=== PATIENT | male | born 1985 | race Caucasian/White ===

== ENCOUNTER 2017-05-04 13:15 | Inpatient (IN) | payer OTHER ==
[~2017-05-04] VITALS: Ht 177.8 cm; Wt 131.5 kg
[2017-05-04 13:24] VITALS: BP_SYST 160
[2017-05-04 14:08] LABS: BASOPHILS # (AUTO) 0.1 K/uL (0.0-0.2); BASOPHILS % (AUTO) 0.3 % (0.0-2.0); HEMATOCRIT 48.6 % (36-54); HEMOGLOBIN 15.9 g/dL (14.0-18.0); LYMPHOCYTES # (AUTO) 0.6 K/uL (1.0-5.5); LYMPHOCYTES % (AUTO) 2.6 % (20.5-51.5); MEAN CORPUSCULAR HEMOGLOBIN 30 pg (27-31); MEAN CORPUSCULAR HGB CONC 33 % (32-36); MEAN CORPUSCULAR VOLUME 91 fL (79.0-98.0); MONOCYTES # (AUTO) 0.6 K/uL (0.0-1.0); MONOCYTES % (AUTO) 2.8 % (1.7-9.3); NEUTROPHILS % (AUTO) 94.3 % (40.0-70.0); PLATELET COUNT (AUTO) 297 K/uL (130-430); RED BLOOD CELL COUNT(AUTO) 5.35 MIL/uL (4.2-6.2); RED CELL DISTRIBUTION WIDTH 12.9 % (9.0-15.0); WHITE BLOOD COUNT (AUTO) 21.3 K/uL (4.8-10.8)
[2017-05-04 14:18] LABS: CALCIUM 9.3 mg/dL (8.4-11.0); CREATININE 1.05 mg/dL (0.55-1.30); POTASSIUM 4.1 mmol/L (3.5-5.1)
[2017-05-04 14:23] LABS: ALBUMIN 3.8 g/dL (3.4-4.8); TOTAL BILIRUBIN 0.6 mg/dL (0.0-1.0); TOTAL PROTEIN, SERUM 8.5 g/dL (6.4-8.3)
--- NOTE | 2017-05-04 15:10 | NUR ---
Ambulatory to bed 6
--- NOTE | 2017-05-04 15:30 | NUR ---
Ahsan Leos DIE MAINTENANCE at bedside for evaluation
--- NOTE | 2017-05-04 15:33 | NUR ---
Pt c/o LLE redness started yesterday, chills and fever last night.
[2017-05-04] MEDS ORDERED: KETOROLAC TROMETHAMINE 30 MG VIAL IVP ONE (15:45)
[2017-05-04] MEDS ORDERED: NACL 0.9% 1,000 ML IV ONE (15:45)
[2017-05-04] MEDS ORDERED: cefTRIAXone 1 GM IVPB PREMIX 50 ML IV ONE (15:45)
[2017-05-04] MEDS ORDERED: VANCOMYCIN HCL 1,000 MG in NS 250 ML IV ONE (15:45)
--- NOTE | 2017-05-04 15:47 | NUR ---
Phleb at bedside to draw cultures and lactic acid
[2017-05-04 15:53] LABS: BILIRUBIN,URINE NEGATIVE (NEGATIVE); BLOOD, URINE NEGATIVE (NEGATIVE); CLARITY/URINE CLEAR (CLEAR); COLOR,URINE YELLOW (YELLOW); GLUCOSE,URINE NEGATIVE (NEGATIVE); KETONES,URINE NEGATIVE (NEGATIVE); LEUKOCYTE ESTERASE ,URINE NEGATIVE (NEGATIVE); NITRITE, URINE NEGATIVE (NEGATIVE); PROTEIN URINE NEGATIVE (NEGATIVE); UROBILINOGEN,URINE 0.2 (0.2-1.0)
[2017-05-04] MEDS ORDERED: VANCOMYCIN HCL 1000 MG/VIAL IV ONE ×3 (16:02→21:37)
[2017-05-04] MEDS ORDERED: KETOROLAC TROMETHAMINE 30 MG VIAL ONE (16:18)
[2017-05-04] MEDS ORDERED: ACETAMINOPHEN 500 MG TABLET PO ONE (16:30)
--- NOTE | 2017-05-04 16:30 | NUR ---
Medicated per MD orders. IVF infusing with no s/s of infiltration at this time. No adverse reaction to medication. Will cont to monitor
[2017-05-04 16:38] LABS: BARBITURATE, URINE NEGATIVE (NEG <=200); BENZODIAZEPINE, URINE NEGATIVE (NEG <=150); CANNABINOID, URINE NEGATIVE (NEG <=50); COCAINE, URINE NEGATIVE (NEG <=150); METHAMPHETAMINES SCREEN,URINE NEGATIVE (NEG <=500); OPIATE, URINE NEGATIVE (NEG <=100); PHENCYCLIDINE SCREEN,URINE NEGATIVE (NEG <=25); UR TRICYCLIC ANTIDEPRESSANTS NEGATIVE (NEG <=300); URINE AMPHETAMINE NEGATIVE (NEG <=500); URINE METHADONE NEGATIVE (NEG <=200); URINE OXYCODONE SCREEN NEGATIVE (NEG <=100); URINE PROPOXYPHENE SCREEN NEGATIVE (NEG <=300)
[2017-05-04] MEDS ORDERED: DIPHENHYDRAMINE INJ 50 MG/ML VIAL IVP ONE (17:00)
[2017-05-04] MEDS ORDERED: MORPHINE SULFATE 10 MG/ML VIAL IVP ONE (17:00)
--- NOTE | 2017-05-04 17:02 | NUR ---
Medicated per MD orders. Vanco infusing with no s/sx of infiltration. Pt cool, clammy, fever reduced. VSS.
--- NOTE | 2017-05-04 17:04 | NUR ---
Patient will be admitted to care of Dr. Raya. Admitted to med surg unit. Will go to room 131. Belongings list completed. Summary report printed. Report will be given at bedside.
--- NOTE | 2017-05-04 17:05 | NUR ---
Transfer to med surg Licensed nurse present. IV present no signs or symptoms of infiltration.
--- NOTE | 2017-05-04 17:17 | NUR ---
ADMISSION NOTE Received patient from ER via viviane, received report from RUBY GORE. Patient admitted with diagnosis of LEFT LOWER LEG CELLULITIS. Patient oriented to hospital routine, call light, toileting and safety-patient verbalized understanding.
[2017-05-04 17:22] VITALS: BP_SYST 160
--- NOTE | 2017-05-04 17:30 | NUR ---
MD ROUNDS Seen and examined by Dr. villanueva informed regarding elevated blood pressure, headache is better after pain medication in ER , IV ANTIBIOTIC Vancomycin infusing , no adverse reaction ,will continue to monitor, plan of care discussed with patient verbalized understanding.
[2017-05-04] MEDS ORDERED: ONDANSETRON HCL 4 MG/2 ML VIAL IVP PRN (17:45)
[2017-05-04] MEDS ORDERED: ACETAMINOPHEN 500 MG TABLET PO PRN (17:45)
--- NOTE | 2017-05-04 18:10 | NUR ---
ID CONSULT Spoke with Gerri regarding request for consultation with Dr. Shine ([phone]) for reason: cellulitis.
--- NOTE | 2017-05-04 19:22 | NUR ---
Opening note report was endorsed by day nurse at bedside. Patient is awake and laying in bed. Educated cert occupational therapy asst light and safety. Patient has no signs of distress, breathing is equal and unlabored. will continue to monitor.
[2017-05-04 19:42] VITALS: BP_SYST 137
--- NOTE | 2017-05-04 21:00 | NUR ---
RN rounding Patient appears to be resting with eyes closed visible chest rise and fall no signs of distress. Patient is refusing bed alarm education was given. Call light is with patient bed is in lowest position. Will continue to monitor.
[2017-05-04] MEDS: VANCOMYCIN HCL 1,500 MG in NS 250 ML IV SCH (22:55)
--- NOTE | 2017-05-04 22:55 | NUR ---
MEDICATION Patients scheduled medication given per order. Patient educated on safety, call light, patient is still refusing bed alarm. Patient shows no signs of distress breathing is equal and unlabored.Call light on left side of patient. will continue to monitor.
--- NOTE | 2017-05-04 23:58 | NUR ---
RN rounding Patient appears to be resting with eyes closed no signs of distress with visible chest rise and fall. Breathing is equal and nonlabored. Patient is refusing Bed alarm educated section crews activities clerk light for assistance, bed is in lowest position, call light is with patient. Will continue to monitor.
[2017-05-05] VITALS: BP_SYST 145
--- NOTE | 2017-05-05 00:59 | NUR ---
Pain Medication Patient is complains of pain medicated as order. Patient educated on safety precautions and call light. Patient is refusing bed alarm at this time. No signs of distress will continue to monitor.
[2017-05-05 03:37] VITALS: BP_SYST 139
[2017-05-05] MEDS: HYDROcodone/ACETAMIN 5-325 MG TAB (NORCO/ VICODIN) PO PRN ×2 (03:37→15:30)
--- NOTE | 2017-05-05 03:42 | NUR ---
Pain Medication Patient is complains of pain 6/10 medicated as order. Patient has family member at bedside. Patient is awake with no signs of distress. Safety precautions are in place refusing bed alarm. Educated quality control microbiology supervisor light. Urinal emptied. Will continue to monitor.
[2017-05-05] MEDS: VANCOMYCIN HCL 1,500 MG in NS 250 ML IV SCH ×3 (05:15→15:01)
--- NOTE | 2017-05-05 05:21 | NUR ---
Medication Scheduled medication given per order please see EMAR. Patient shows no signs of distress breathing is equal and unlabored. safety precatuions in place refusing bed alarm on. Call light is on patients left side. will continue to monitor.
--- NOTE | 2017-05-05 06:35 | NUR ---
RN closing note Patient appears to be resting with eyes closed no signs of distress breathing is equal and nonlabored. Patient has call light with him. Safety precautions in place patient refusing bed alarm. Will endorse report to oncoming day nurse.
--- NOTE | 2017-05-05 07:00 | NUR ---
OPENING NOTES RECEIVED REPORT FROM PREPPER NURSE, PT ASLEEP IN BED, NO C/O PAIN NO DISTRESS, CALL LIGHT IN REACH, WILL CONTINUE TO MONITOR.
[2017-05-05 07:51] LABS: BASOPHILS % (AUTO) 0.4 % (0.0-2.0); EOSINOPHILS % (AUTO) 0.4 % (0.0-4.0); HEMATOCRIT 44.8 % (36-54); HEMOGLOBIN 14.9 g/dL (14.0-18.0); LYMPHOCYTES # (AUTO) 0.9 K/uL (1.0-5.5); LYMPHOCYTES % (AUTO) 8.2 % (20.5-51.5); MEAN CORPUSCULAR HEMOGLOBIN 31 pg (27-31); MEAN CORPUSCULAR HGB CONC 33 % (32-36); MEAN CORPUSCULAR VOLUME 91 fL (79.0-98.0); MONOCYTES # (AUTO) 0.9 K/uL (0.0-1.0); MONOCYTES % (AUTO) 7.9 % (1.7-9.3); NEUTROPHILS # (AUTO) 9.2 K/uL (1.8-7.7); NEUTROPHILS % (AUTO) 83.1 % (40.0-70.0); PLATELET COUNT (AUTO) 226 K/uL (130-430); RED CELL DISTRIBUTION WIDTH 12.8 % (9.0-15.0)
[2017-05-05 07:56] LABS: CALCIUM 8.6 mg/dL (8.4-11.0); CREATININE 0.98 mg/dL (0.55-1.30); POTASSIUM 3.8 mmol/L (3.5-5.1)
[2017-05-05 08:00] VITALS: BP_SYST 124; BP_SYST 160
--- NOTE | 2017-05-05 12:00 | NUR ---
ROUNDS PT RESTING IN BED, NO C/O PAIN, CALL LIGHT IN REACH.
[2017-05-05 12:23] VITALS: BP_SYST 139
--- NOTE | 2017-05-05 15:40 | NUR ---
ROUNDS GAVE NORCO PRN FOR PAIN 4/10 PO.
--- NOTE | 2017-05-05 16:05 | NUR ---
PAGED PAGED RAFAELA MARIO AT [phone] SPOKE WITH BE.
--- NOTE | 2017-05-05 16:10 | NUR ---
Case Mgt: Rec'd call from Matty at [facility] indicating pt is OON--reviewed case with her-ie WBC down to 11.0 from 21.3--Per Matty, pt authorized to continue inpt stay here and she will f/u with me tomorrow regarding POC..charge nurse Troy updated pt can stay here tonight instead of transfer to contracted hospital--ROSETTA GORE
[2017-05-05 16:11] VITALS: BP_SYST 135
--- NOTE | 2017-05-05 16:35 | NUR ---
ROUNDS PT HAS NO C/O PAIN, IV VANCO ATB INFUSING WELL, PT WANTS TO SIGN OUT AMA, WAITING FOR GIRLFRIEND TO COME.
--- NOTE | 2017-05-05 17:40 | NUR ---
PAGED PAGED LAMINE AN AT [phone] SPOKE WITH SUZAN.
--- NOTE | 2017-05-05 17:45 | NUR ---
PT SIGNED THE AMA FORM AND LEFT AMA IN STABLE CONDITION, HEPLOCK TAKEN OUT AND WALKED WALKED SAFELY OUT OF THE HOSPITAL. PT STATED HE HAD TO LEAVE BECAUSE HIS GRANDFATHER AND HE WANTED TO HELP HIS GRANDMOTHER.
== END 2017-05-05 17:45 | disposition left against medical advice (07) | DRG 603 ==
LOC: SED 13:15 → SMU 16:33
PROVIDERS: ADMIT Family Medicine; ATTEND Family Medicine
DX: L03.116 Cellulitis of left lower limb (principal); Z68.41 Body mass index [BMI] 40.0-44.9, adult; E66.9 Obesity, unspecified; I10 Essential (primary) hypertension; Z53.21 Procedure and treatment not carried out due to patient leaving prior to being seen by health care provider
CPT/HCPCS: 36415; 73590-TC; 80048; 80053; 80307; 81003; 83605; 85025; 87040-TC; 93005; 96365; 96375; 99285; J0696; J1200; J1885; J2270; J3370; J7030; J7050

== ENCOUNTER 2020-05-16 01:55 | Emergency (ER) | payer MEDICAID, OTHER ==
[~2020-05-16] VITALS: Ht 177.8 cm; Wt 131.5 kg
--- NOTE | 2020-05-16 01:55 | NUR ---
Patient triaged and placed in waiting room. VSS and patient appears in no acute distress at this time. Awaiting available bed, and MD notified of need for MSE.
--- NOTE | 2020-05-16 02:00 | NUR ---
Pt presented to ED with 2-4 day gradual onset of sore throat. pt states that he has been having increased difficulty swallowing. Pt denies chest pain, nausea, vomiting, diarrhea, shortness of breath, any other medical complaint at this time. Pt resting in triage chair comfortably.
--- NOTE | 2020-05-16 02:10 | NUR ---
ER at bedside examining patient.
[2020-05-16 02:39] VITALS: BP_SYST 165
--- NOTE | 2020-05-16 02:39 | NUR ---
Note undone in EDM - 05/16/20 at 0440 by [email or web address] Patient triaged and placed in waiting room. VSS and patient appears in no acute distress at this time. Awaiting available bed, and MD notified of need for MSE.
--- NOTE | 2020-05-16 03:45 | NUR ---
Strep Swab Collected.
[2020-05-16 04:20] VITALS: BP_SYST 165
--- NOTE | 2020-05-16 04:20 | NUR ---
Patient given written and verbal discharge instructions and verbalizes understanding. ER MD discussed with patient the results and treatment provided. Patient in stable condition. ID arm band removed. NO IV Rx of cepacol and amoxicillin given. Patient educated on pain management and to follow up with PMD. Pain Scale 6/10. Opportunity for questions provided and answered. Medication side effect fact sheet provided.
== END 2020-05-16 04:20 | disposition home or self-care (01) ==
LOC: SED 01:55
DX: J02.9 Acute pharyngitis, unspecified (principal)
CPT/HCPCS: 36415; 86403; 87081; 99283

== ENCOUNTER 2021-03-09 00:08 | Emergency (ER) | payer MEDICAID ==
[~2021-03-09] VITALS: Ht 177.8 cm; Wt 136.1 kg
[2021-03-09 00:08] VITALS: BP_SYST 172
[2021-03-09] MEDS ORDERED: KETOROLAC TROMETHAMINE 30 MG VIAL IVP ONE (01:15)
[2021-03-09] MEDS ORDERED: NACL 0.9% 1,000 ML IV ONE (01:15)
[2021-03-09 01:36] LABS: BASOPHILS % (AUTO) 0.4 % (0.0-2.0); EOSINOPHILS # (AUTO) 0.1 K/uL (0.0-0.4); EOSINOPHILS % (AUTO) 1.3 % (0.0-4.0); HEMATOCRIT 38.6 % (36-54); HEMOGLOBIN 12.8 g/dL (14.0-18.0); LYMPHOCYTES # (AUTO) 1.4 K/uL (1.0-5.5); LYMPHOCYTES % (AUTO) 16.6 % (20.5-51.5); MEAN CORPUSCULAR HEMOGLOBIN 28 pg (27-31); MEAN CORPUSCULAR HGB CONC 33 % (32-36); MEAN CORPUSCULAR VOLUME 85 fL (79.0-98.0); MONOCYTES # (AUTO) 0.7 K/uL (0.0-1.0); MONOCYTES % (AUTO) 8.8 % (1.7-9.3); NEUTROPHILS % (AUTO) 72.9 % (40.0-70.0); PLATELET COUNT (AUTO) 367 K/uL (130-430); RED BLOOD CELL COUNT(AUTO) 4.55 MIL/uL (4.2-6.2); RED CELL DISTRIBUTION WIDTH 14.8 % (9.0-15.0); WHITE BLOOD COUNT (AUTO) 8.2 K/uL (4.8-10.8)
[2021-03-09 01:51] LABS: CALCIUM 8.8 mg/dL (8.4-11.0); CREATININE 1.17 mg/dL (0.55-1.30)
[2021-03-09 01:55] LABS: ALBUMIN 3.1 g/dL (3.4-4.8); C-REACTIVE PROTEIN QUANT 8.2 mg/dL (0-0.5); TOTAL BILIRUBIN 0.3 mg/dL (0.0-1.0); URIC ACID 6.3 mg/dL (2.4-7.0)
[2021-03-09 01:56] LABS: POTASSIUM 4.5 mmol/L (3.5-5.1)
[2021-03-09 01:57] LABS: BILIRUBIN,URINE NEGATIVE (NEGATIVE); BLOOD, URINE NEGATIVE (NEGATIVE); CLARITY/URINE CLEAR (CLEAR); COLOR,URINE YELLOW (YELLOW); GLUCOSE,URINE NEGATIVE (NEGATIVE); KETONES,URINE TRACE (NEGATIVE); LEUKOCYTE ESTERASE ,URINE NEGATIVE (NEGATIVE); NITRITE, URINE NEGATIVE (NEGATIVE); PH,URINE 5.5 (5.0-8.0); PROTEIN URINE TRACE (NEGATIVE)
[2021-03-09] MEDS ORDERED: INDO-12 PO (03:06)
[2021-03-09] MEDS ORDERED: IBUP-1970 PO (03:06)
[2021-03-09 03:07] VITALS: BP_SYST 136
== END 2021-03-09 03:07 | disposition home or self-care (01) ==
LOC: SED 00:08
DX: M10.9 Gout, unspecified (principal); M25.571 Pain in right ankle and joints of right foot; I10 Essential (primary) hypertension; Z79.899 Other long term (current) drug therapy
CPT/HCPCS: 36415; 80053; 81003; 84550; 85025; 86140; 93005; 96361; 96374; 99284; J1885; J7030

== ENCOUNTER 2021-07-23 19:53 | Emergency (ER) | payer MEDICAID ==
[~2021-07-23] VITALS: Ht 177.8 cm; Wt 127.0 kg
[~2021-07-23 19:53] MED LIST: IBUP-1970 PO; INDO-12 PO
[2021-07-23 20:20] VITALS: BP_SYST 130
[2021-07-23] MEDS ORDERED: NACL 0.9% 1,000 ML IV ONE (21:15)
[2021-07-23] MEDS ORDERED: cefTRIAXone 1 GM IVPB PREMIX 50 ML IV ONE (21:15)
[2021-07-23] MEDS ORDERED: VANCOMYCIN HCL 1,000 MG in D5W 250 ML IV ONE (21:15)
[2021-07-23] MEDS ORDERED: VANCOMYCIN HCL 1000 MG/VIAL IV ONE (22:00)
[2021-07-23 22:03] LABS: BASOPHILS # (AUTO) 0.1 K/uL (0.0-0.2); BASOPHILS % (AUTO) 0.4 % (0.0-2.0); EOSINOPHILS % (AUTO) 0.1 % (0.0-4.0); HEMATOCRIT 39.2 % (36-54); HEMOGLOBIN 12.8 g/dL (14.0-18.0); LYMPHOCYTES # (AUTO) 0.7 K/uL (1.0-5.5); LYMPHOCYTES % (AUTO) 4.4 % (20.5-51.5); MEAN CORPUSCULAR HEMOGLOBIN 27 pg (27-31); MEAN CORPUSCULAR HGB CONC 33 % (32-36); MEAN CORPUSCULAR VOLUME 84 fL (79.0-98.0); MONOCYTES # (AUTO) 0.5 K/uL (0.0-1.0); MONOCYTES % (AUTO) 3.2 % (1.7-9.3); NEUTROPHILS % (AUTO) 91.9 % (40.0-70.0); PLATELET COUNT (AUTO) 338 K/uL (130-430); RED BLOOD CELL COUNT(AUTO) 4.69 MIL/uL (4.2-6.2); RED CELL DISTRIBUTION WIDTH 16.1 % (9.0-15.0); WHITE BLOOD COUNT (AUTO) 16.4 K/uL (4.8-10.8)
[2021-07-23 22:09] LABS: BILIRUBIN,URINE NEGATIVE (NEGATIVE); BLOOD, URINE NEGATIVE (NEGATIVE); CLARITY/URINE CLEAR (CLEAR); COLOR,URINE YELLOW (YELLOW); GLUCOSE,URINE NEGATIVE (NEGATIVE); KETONES,URINE NEGATIVE (NEGATIVE); LEUKOCYTE ESTERASE ,URINE NEGATIVE (NEGATIVE); NITRITE, URINE NEGATIVE (NEGATIVE); PROTEIN URINE NEGATIVE (NEGATIVE)
[2021-07-23 22:10] LABS: CALCIUM 9.5 mg/dL (8.4-11.0); CREATININE 1.26 mg/dL (0.55-1.30); POTASSIUM 3.7 mmol/L (3.5-5.1)
[2021-07-23 22:25] LABS: TOTAL BILIRUBIN 0.3 mg/dL (0.0-1.0)
[2021-07-24] MEDS ORDERED: ACETAMINOPHEN 500 MG TABLET ONE (00:56)
[2021-07-24] MEDS ORDERED: NACL 0.9% 1,000 ML IV ONE ×2 (02:15)
[2021-07-24] MEDS ORDERED: HYDR-3917 PO (03:13)
[2021-07-24] MEDS ORDERED: IBUP-1969 PO (03:13)
[2021-07-24] MEDS ORDERED: CLIN-22 PO (03:13)
[2021-07-24 03:21] VITALS: BP_SYST 157
== END 2021-07-24 03:21 | disposition home or self-care (01) ==
LOC: SED 19:53
DX: L03.116 Cellulitis of left lower limb (principal); I10 Essential (primary) hypertension; F12.90 Cannabis use, unspecified, uncomplicated; Z79.899 Other long term (current) drug therapy; Z20.822 Contact with and (suspected) exposure to COVID-19
CPT/HCPCS: 36415; 80053; 81003; 83605; 85025; 87040; 87426; 96361; 96365; 96366; 96368; 99285; J0696; J3370; J7030

== ENCOUNTER 2021-12-09 06:24 | Emergency (ER) | payer MEDICAID ==
[~2021-12-09] VITALS: Ht 177.8 cm; Wt 127.0 kg
[~2021-12-09 06:24] MED LIST changes: +CLIN-22 PO; +HYDR-3917 PO; +IBUP-1969 PO
[2021-12-09 06:30] VITALS: BP_SYST 159
[2021-12-09 07:25] LABS: BASOPHILS # (AUTO) 0.1 K/uL (0.0-0.2); BASOPHILS % (AUTO) 0.7 % (0.0-2.0); EOSINOPHILS # (AUTO) 0.1 K/uL (0.0-0.4); HEMATOCRIT 28.9 % (36-54); HEMOGLOBIN 9.2 g/dL (14.0-18.0); LYMPHOCYTES # (AUTO) 1.3 K/uL (1.0-5.5); LYMPHOCYTES % (AUTO) 17.1 % (20.5-51.5); MEAN CORPUSCULAR HEMOGLOBIN 23 pg (27-31); MEAN CORPUSCULAR HGB CONC 32 % (32-36); MEAN CORPUSCULAR VOLUME 74 fL (79.0-98.0); MONOCYTES # (AUTO) 0.4 K/uL (0.0-1.0); MONOCYTES % (AUTO) 5.5 % (1.7-9.3); NEUTROPHILS # (AUTO) 5.6 K/uL (1.8-7.7); NEUTROPHILS % (AUTO) 74.7 % (40.0-70.0); PLATELET COUNT (AUTO) 571 K/uL (130-430); RED BLOOD CELL COUNT(AUTO) 3.93 MIL/uL (4.2-6.2); WHITE BLOOD COUNT (AUTO) 7.4 K/uL (4.8-10.8)
[2021-12-09 07:46] LABS: CALCIUM 8.3 mg/dL (8.4-11.0); CREATININE 0.95 mg/dL (0.55-1.30)
[2021-12-09] MEDS ORDERED: CEPH-548 PO (08:44)
[2021-12-09 09:04] VITALS: BP_SYST 139
== END 2021-12-09 09:03 | disposition home or self-care (01) ==
LOC: SED 06:24
DX: L03.115 Cellulitis of right lower limb (principal); I10 Essential (primary) hypertension; Z79.899 Other long term (current) drug therapy
CPT/HCPCS: 36415; 73590-TC; 80048; 85025; 93971; 99285

== ENCOUNTER 2022-04-20 03:34 | Inpatient (IN) | payer MEDICAID ==
[2022-04-20] VITALS (11 sets, daily range): BP systolic 105–159
[~2022-04-20] VITALS: Ht 177.8 cm; Wt 113.4 kg
[~2022-04-20 03:34] MED LIST changes: +CEPH-548 PO
--- NOTE | 2022-04-20 03:36 | NUR ---
Placed in room 7 . Placed on manager cardiac, blood pressure machine and pulse oximeter. To gown for exam. Side rails up. Report given to Diane GORE.
--- NOTE | 2022-04-20 03:41 | NUR ---
Patient states he has been SOB x 1.5 months but has not seen PMD for this. States it has gotten increasingly worse, with lethargy and fatigue present as well. No chest pain or other symptoms associated. No swelling noted to bilateral lower extremeties.
--- NOTE | 2022-04-20 03:47 | NUR ---
Dr. Wong at bedside with patient for evaluation.
--- NOTE | 2022-04-20 03:47 | NUR ---
Pt speaking in full sentences and no signs of resp distress RR at 18 and O2 sat at 99% on RA. Pt A&O x4, ambulatory, and following commands. Safety precautions in place.
[2022-04-20] MEDS ORDERED: KETOROLAC TROMETHAMINE 15 MG VIAL IVP ONE (04:00)
[2022-04-20] MEDS ORDERED: NACL 0.9% 1,000 ML IV ONE ×2 (04:00→05:30)
--- NOTE | 2022-04-20 04:20 | NUR ---
X-ray being done at bedside.
[2022-04-20 04:34] LABS: MEAN CORPUSCULAR VOLUME 63 fL (79.0-98.0)
[2022-04-20 04:38] LABS: ANION GAP 12 (5-15); CALCIUM 8.9 mg/dL (8.4-11.0); CHLORIDE 98 mmol/L (98-107); GLUCOSE 118 mg/dL (70-99); POTASSIUM 3.8 mmol/L (3.5-5.1); SODIUM SERUM 130 mmol/L (136-145); UREA NITROGEN, BLOOD 25 mg/dL (8-21)
[2022-04-20 04:46] LABS: BASOPHILS % (AUTO) 0.2 % (0.0-2.0); EOSINOPHILS % (AUTO) 0.2 % (0.0-4.0); LYMPHOCYTES % (AUTO) 5.1 % (20.5-51.5); MEAN CORPUSCULAR HEMOGLOBIN 19 pg (27-31); MEAN CORPUSCULAR HGB CONC 30 % (32-36); MONOCYTES # (AUTO) 1.4 K/uL (0.0-1.0); MONOCYTES % (AUTO) 6.8 % (1.7-9.3); NEUTROPHILS # (AUTO) 17.5 K/uL (1.8-7.7); NEUTROPHILS % (AUTO) 87.7 % (40.0-70.0); RED BLOOD CELL COUNT(AUTO) 3.18 MIL/uL (4.2-6.2); RED CELL DISTRIBUTION WIDTH 19.6 % (9.0-15.0)
[2022-04-20 04:53] LABS: ALANINE AMINOTRANSFERASE 28 U/L (12-78); ASPARTATE AMINOTRANSFERASE 93 U/L (10-37); TOTAL BILIRUBIN 0.3 mg/dL (0.0-1.0)
[2022-04-20] MEDS ORDERED: iohexoL 350 mgI/mL, 100 ML INFUS..BTL IV ONE (04:57)
[2022-04-20 04:58] LABS: GFR AFRICAN AMERICAN 60 mL/min (>90)
[2022-04-20 05:00] LABS: HEMATOCRIT 19.9 % (36-54)
[2022-04-20] MEDS ORDERED: cefTRIAXone 1 GM IVPB PREMIX 50 ML IV ONE (05:30)
[2022-04-20] MEDS ORDERED: DOXYCYCLINE HYCLATE 100 MG CAPSULE PO ONE (05:30)
[2022-04-20 05:31] LABS: PLATELET COUNT (AUTO) 706 K/uL (130-430)
--- NOTE | 2022-04-20 06:46 | NUR ---
Urine collected and sent to lab.
--- NOTE | 2022-04-20 07:14 | NUR ---
Report given to Symone GORE to assume care.
[2022-04-20 07:49] LABS: BILIRUBIN,URINE NEGATIVE (NEGATIVE); BLOOD, URINE NEGATIVE (NEGATIVE); COLOR,URINE YELLOW (YELLOW); GLUCOSE,URINE NEGATIVE (NEGATIVE); KETONES,URINE NEGATIVE (NEGATIVE); LEUKOCYTE ESTERASE ,URINE NEGATIVE (NEGATIVE); NITRITE, URINE NEGATIVE (NEGATIVE); PH,URINE 5.5 (5.0-8.0); PROTEIN URINE NEGATIVE (NEGATIVE); UROBILINOGEN,URINE 0.2 (0.2-1.0)
[2022-04-20 07:50] LABS: CLARITY/URINE CLEAR (CLEAR)
--- NOTE | 2022-04-20 08:45 | NUR ---
ULTRASOUND AT THE BEDSIDE
--- NOTE | 2022-04-20 08:50 | NUR ---
BREAKFAST TRAY PROVIDED TO PT
--- NOTE | 2022-04-20 08:54 | NUR ---
Admit bed requested Patient will be admitted to care of . Admitted to TELE unit. Diagnosis DEHYDRATION & ANEMIA Inpatient (Yes or No) YES Observation (Yes or No) NO Orientation concerns or request close to nursing station (Yes or No) NO Covid Status NEGATIVE On vent or bipap NO Isolation requirements NO Needs a sitter NO From Home (Yes or if No enter name of facility) HOME Requires Dialysis (Yes or No) NO Med Rec Completed (Yes of No) YES
--- NOTE | 2022-04-20 09:01 | NUR ---
Spoke to lab regarding status of packed cells. Not ready, will follow up in 20 minutes.
[2022-04-20] MEDS ORDERED: POTASSIUM CHLORIDE 20 MEQ in D5/0.45 NS 1,000 ML IV SCH (09:30)
--- NOTE | 2022-04-20 10:05 | NUR ---
Consent signed agreeing to administration of blood. Blood has been type and crossmatched. Blood sent from blood bank. Information on unit of blood checked against patient wristband at bedside by two nurses. All information matches. Patient or responsible democrat informed of potential complications associated with blood transfusion. Informed of possible transfusion reaction symptoms. Aware of need to notify nurse at once of itching, shortness of breath, flushing, feeling of impending doom, or other symptoms not previously present. Vital signs taken within 5 minutes prior to initiation of transfusion. RN will remain with patient for first 15 minutes of transfusion at which time vital signs will be re-assessed.
[2022-04-20] MEDS ORDERED: LISI10TA29 PO (10:30)
--- NOTE | 2022-04-20 10:30 | NUR ---
Medication reconciliation completed with information provided by PATIENT. Any prior medication reconciliation on file was reviewed and corrected.
--- NOTE | 2022-04-20 11:55 | NUR ---
Admission Note Received patient from ER with diagnosis of Dehydration and Anemia. Initial Plan of Care discussed-patient verbalized understanding. Family at bedside. Oriented to room, call light, pain management and safety.Blood transfusion on going.No problem.
--- NOTE | 2022-04-20 12:12 | NUR ---
Patient will be admitted to care [facility]. Admitted to MS-Tele unit. Will go to room 117A. Belongings list completed. Complete and up to date summary report printed. SBAR report to be given at bedside with opportunity for questions.
[2022-04-20] MEDS ORDERED: dilTIAZem HCL IVP 5 MG/ML VIAL IVP ONE ×2 (12:15→12:30)
[2022-04-20] MEDS ORDERED: PIPERACILLIN/TAZO 3.375/DEX-IS 50 ML IV SCH (12:30)
[2022-04-20] MEDS ORDERED: PANTOPRAZOLE SODIUM 40 MG TAB PO ONE (12:30)
[2022-04-20] MEDS ORDERED: amLODIPine BESYLATE 10 MG TABLET PO ONE (12:30)
[2022-04-20] MEDS ORDERED: NITROGLYCERIN 0.4 MG TAB.SUBL SL PRN (12:30)
--- NOTE | 2022-04-20 12:31 | NUR ---
CONSULTATION PAGED REASON FOR CONSULTATION:SINUS TACHYCARDIA WAS CONSULT CALED?Y PERSON WHO WAS NOTIFIED:CORINA CONSULTING PHYSICIAN:CAROLINE TORRES SHAREPOINT TRAINER SPECIALTY:CARDIO SHAREPOINT TRAINER PHONE NUMBER:[phone] REQUESTING PHYSICIAN:VERONICA APPIAH
--- NOTE | 2022-04-20 12:35 | NUR ---
CONSULTATION PAGED REASON FOR CONSULTATION:SEPSIS WAS CONSULT CALED?Y PERSON WHO WAS NOTIFIED:JILL CONSULTING PHYSICIAN:RAFAELA CHRISTINE LABORATORY IMMUNOLOGIST SPECIALTY:INFECTIOUS DISEASE LABORATORY IMMUNOLOGIST PHONE NUMBER:[phone] REQUESTING PHYSICIAN:VERONICA APPIAH
--- NOTE | 2022-04-20 12:40 | NUR ---
CONSULTATION PAGED REASON FOR CONSULTATION:ANEMIA WAS CONSULT CALED?Y PERSON WHO WAS NOTIFIED:LEIDA CONSULTING PHYSICIAN:YESENIA HERNANDEZ AGRONOMY LOCATION MANAGER SPECIALTY:OMCOLOGY/HEMATOLOGY AGRONOMY LOCATION MANAGER PHONE NUMBER:[phone] REQUESTING PHYSICIAN:VERONICA APPIAH
[2022-04-20] MEDS ORDERED: PIPERACILLIN/TAZO 3.375/DEX-IS 50 ML IV ONE (13:00)
[2022-04-20] MEDS ORDERED: METOPROLOL TARTRATE 50 MG TABLET PO ONE (13:00)
--- NOTE | 2022-04-20 13:00 | NUR ---
Finished blood transfusion: Blood transfusion finished and vital signs stable. Afebrile.No problem.
[2022-04-20] MEDS: KCL 20 mEq in NS 1000 mL 1,000 ML IV SCH ×2 (14:09→23:31)
[2022-04-20 14:20] LABS: BASOPHILS # (AUTO) 0.1 K/uL (0.0-0.2); BASOPHILS % (AUTO) 0.3 % (0.0-2.0); EOSINOPHILS % (AUTO) 0.1 % (0.0-4.0); LYMPHOCYTES # (AUTO) 0.7 K/uL (1.0-5.5); LYMPHOCYTES % (AUTO) 3.9 % (20.5-51.5); MEAN CORPUSCULAR HEMOGLOBIN 20 pg (27-31); MEAN CORPUSCULAR HGB CONC 31 % (32-36); MONOCYTES # (AUTO) 1.7 K/uL (0.0-1.0); MONOCYTES % (AUTO) 9.6 % (1.7-9.3); NEUTROPHILS # (AUTO) 15.4 K/uL (1.8-7.7); NEUTROPHILS % (AUTO) 86.1 % (40.0-70.0); PLATELET COUNT (AUTO) 564 K/uL (130-430); RED BLOOD CELL COUNT(AUTO) 2.94 MIL/uL (4.2-6.2); RED CELL DISTRIBUTION WIDTH 21.2 % (9.0-15.0); WHITE BLOOD COUNT (AUTO) 17.9 K/uL (4.8-10.8)
[2022-04-20 14:56] LABS: MEAN CORPUSCULAR VOLUME 65 fL (79.0-98.0)
--- NOTE | 2022-04-20 15:00 | NUR ---
REPORT: REPORT GIVEN TO [facility] ICU CHARGE.TRANSFER TO ICU PER DR MOYA , HEART RATE SUSTAINING >120.
--- NOTE | 2022-04-20 15:25 | NUR ---
Transfer to ICU: Patient transfer to Icu as ordered by Dr. Kendrick via [place].
--- NOTE | 2022-04-20 15:35 | NUR ---
Received pt from [facility] to ICU bed 7. Pt alert and oriented. ST on monitor, rate 115. BP 138/52. RR 20/min. No active bleeding observed. Pt denies pain. Plan of care discussed with pt and he understands. No questions. IVF infusing to right upper arm on pump.
--- NOTE | 2022-04-20 16:06 | NUR ---
Report given to RN to assume care of the patient.
--- NOTE | 2022-04-20 16:06 | NUR ---
Call out to Dr. Kendrick to report repeat H/H of 03/31.
--- NOTE | 2022-04-20 16:11 | NUR ---
Spoke to Dr. Kendrick and orders received for transfusion.
[2022-04-20] MEDS: PIPERACILLIN/TAZO 3.375/DEX-IS 50 ML IV SCH (17:38)
[2022-04-20] MEDS: METOPROLOL TARTRATE 50 MG TABLET PO SCH (20:46)
[2022-04-20] MEDS: ACETAMINOPHEN 325 MG TABLET PO PRN (23:27)
[2022-04-21] VITALS (20 sets, daily range): BP systolic 96–155
[2022-04-21] MEDS: PIPERACILLIN/TAZO 3.375/DEX-IS 50 ML IV SCH ×2 (00:28→06:40)
[2022-04-21] MEDS: ACETAMINOPHEN 325 MG TABLET PO PRN ×2 (00:29→17:11)
--- NOTE | 2022-04-21 02:55 | NUR ---
End of the second unit of PRBC transfusion , patient tolerated transfusion well, no reaction noted .
[2022-04-21 07:08] LABS: TOTAL IRON BIND. CAPACITY 136 ug/dL (250-450)
--- NOTE | 2022-04-21 07:16 | NUR ---
Received report from night guard RN, and assumed patient care.
[2022-04-21] MEDS: KCL 20 mEq in NS 1000 mL 1,000 ML IV SCH ×2 (07:55→17:32)
--- NOTE | 2022-04-21 08:00 | NUR ---
Encouraged patient to self turn in bed every two hours, and perform self care throughout the day. Patient understands teaching and will reinforce if needed throughout the shift.
[2022-04-21 08:03] LABS: BASOPHILS # (AUTO) 0.1 K/uL (0.0-0.2); BASOPHILS % (AUTO) 0.3 % (0.0-2.0); EOSINOPHILS % (AUTO) 0.1 % (0.0-4.0); HEMATOCRIT 23.8 % (36-54); HEMOGLOBIN 7.6 g/dL (14.0-18.0); LYMPHOCYTES # (AUTO) 1.1 K/uL (1.0-5.5); LYMPHOCYTES % (AUTO) 5.5 % (20.5-51.5); MEAN CORPUSCULAR HEMOGLOBIN 22 pg (27-31); MEAN CORPUSCULAR HGB CONC 32 % (32-36); MEAN CORPUSCULAR VOLUME 69 fL (79.0-98.0); MONOCYTES # (AUTO) 1.8 K/uL (0.0-1.0); MONOCYTES % (AUTO) 9.6 % (1.7-9.3); NEUTROPHILS # (AUTO) 16.1 K/uL (1.8-7.7); NEUTROPHILS % (AUTO) 84.5 % (40.0-70.0); PLATELET COUNT (AUTO) 593 K/uL (130-430); RED BLOOD CELL COUNT(AUTO) 3.46 MIL/uL (4.2-6.2); RED CELL DISTRIBUTION WIDTH 25.7 % (9.0-15.0); RETICULOCYTE COUNT 1.8 % (0.5-1.5); WHITE BLOOD COUNT (AUTO) 19.1 K/uL (4.8-10.8)
[2022-04-21] MEDS: METOPROLOL TARTRATE 50 MG TABLET PO SCH ×2 (08:05→20:37)
--- NOTE | 2022-04-21 08:14 | NUR ---
Received critical lab value of procal. 3.2, paged Dr. Kendrick and will inform MD once call back. No new orders noted at the moment, will reinforce if needed throughout the shift.
--- NOTE | 2022-04-21 08:15 | NUR ---
PAGED DR. MOYA FOR ORDERS DIALED: [phone]
[2022-04-21] MEDS ORDERED: amLODIPine BESYLATE 10 MG TABLET PO SCH (09:00)
[2022-04-21] MEDS ORDERED: PANTOPRAZOLE SODIUM 40 MG TAB PO SCH (09:00)
--- NOTE | 2022-04-21 09:10 | NUR ---
Dr. Celis at bedside, is aware of critical procal. 3.2, asked to call for Dr. Wilson for GI consult. Will inform Dr. Kendrick for further instructions, no new orders noted at the moment.
[2022-04-21 09:38] LABS: CALCIUM 8.3 mg/dL (8.4-11.0); CREATININE 1.24 mg/dL (0.55-1.30)
--- NOTE | 2022-04-21 09:38 | NUR ---
Dr. Greg Steward, called for condition updates. MD made some changes on the antibiotics, will wait for further instructions until it's verified. MD is aware of elevated procal of 3.2, will order additional labs. No new orders noted at the moment, will reinforce if needed throughout the shift.
--- NOTE | 2022-04-21 10:20 | NUR ---
Dr. Kendrick at bedside, MD is aware of patient's critical lab result of procal 3.2, MD is aware of Dr. Celis's request to consult GI MD (Dr. Hong). Per MD OK to downgrade patient to telemetry after GI MD sees patient, no additional orders noted at the moment, will reinforce if needed throughout the shift.
[2022-04-21] MEDS ORDERED: PANTOPRAZOLE SODIUM 80 MG in NS 100 ML IVP ONE (10:30)
--- NOTE | 2022-04-21 10:35 | NUR ---
CONSULT LEFT MESSAGE TO ANSWERING SERVICE FOR GI CONSULTATION WITH DR GARCIA.
[2022-04-21] MEDS: cefTRIAXone 1 GM in D5W 50 ML IV SCH (10:40)
[2022-04-21] MEDS: PANTOPRAZOLE SODIUM 40 MG in NS 50 ML IV SCH ×3 (10:53→20:37)
[2022-04-21] MEDS: metroNIDAZOLE 500 mg/NS 100 ML IV SCH ×2 (10:54→23:22)
--- NOTE | 2022-04-21 12:36 | NUR ---
Dr. Biswas at bedside, no new orders noted at the moment and will reinforce if needed throughout the shift. OK to give iron gtt, will wait for orders to be verified.
[2022-04-21] MEDS: SOD FERRIC GLUC COMPLEX/SUC 125 MG in NS 100 ML IV SCH (13:47)
--- NOTE | 2022-04-21 15:30 | NUR ---
Patient's right upper arm IV was accidentally pulled out, will place another IV, and redressed the site with gauze to stop bleeding. No other complications noted at the moment, will reinforce if needed throughout the shift.
--- NOTE | 2022-04-21 16:05 | NUR ---
Changed patient's linens, patient provided self CHG bath wipes, assisted in changing bed linens. No additional complications noted at the moment. Will reinforce if needed throughout the shift.
--- NOTE | 2022-04-21 17:00 | NUR ---
Dr. Hong at bedside, MD is aware of patient's complaints of bloody (dark-red stools) for couple of months now, and per MD patient might possibly to and endoscopy, colonoscopy, and CT of abdomen triphasic per MD. MD will place orders on [employer], no additional orders noted at the moment, will reinforce if needed throughout the shift. Patient was complaining of pain in the abdomen which is 3/10 pain, described as aching. Non-pharmacological interventions were performed, patient continues to ask for pain medication. Will reassess throughout the shift.
[2022-04-21] MEDS ORDERED: MAGNESIUM CITRATE 300 ML ORAL SOLUTION PO ONE (18:00)
[2022-04-21] MEDS ORDERED: BISACODYL 5 MG TABLET.DR (DULCOLAX) PO ONE (18:00)
[2022-04-21] MEDS ORDERED: GOLYTELY / COLYTE SOLUTION 4 LITERS PO ONE (18:00)
--- NOTE | 2022-04-21 19:15 | NUR ---
PM SHIFT ASSESSMENT Patient is awake and alert. VSS. No s/s of SOB or acute distress. Safety precautions in place, call light within reach. Will continue to monitor.
[2022-04-21] MEDS ORDERED: BISACODYL 5 MG TABLET.DR (DULCOLAX) ONE (19:57)
[2022-04-21] MEDS ORDERED: MAGNESIUM CITRATE 300 ML ORAL SOLUTION ONE (21:11)
[2022-04-21] MEDS ORDERED: GOLYTELY / COLYTE SOLUTION 4 LITERS ONE (21:12)
--- NOTE | 2022-04-21 22:25 | NUR ---
TELE TRANSFER Patient transferred to TELE room 100A with all belongings. VSS at time of transfer. Report given to tele nurse.
--- NOTE | 2022-04-21 22:30 | NUR ---
ASSUME CARE OF PT AT THIS TIME, NO DISTRESS OR DISCOMFORT NOTED, PROTONIX DRIP INFUSING AT 10CC/HR, POTASSIUM 20MEQ IN NS INFUSING AT 100CC/HR, PT DENIES PAIN, WILL START PT ON BOWEL PREP FOR COLONOSCOPY PROCEDURE IN AM, ALL FALL PROTOCOLS IN PLACE, REPOSITIONS SELF PER COMFORT, ABLE TO MAKE NEEDS KNOWN, AMBULATORY, WILL CONTINUE TO MONITOR.
[2022-04-22] VITALS: BP_SYST 121
[2022-04-22] MEDS: PANTOPRAZOLE SODIUM 40 MG in NS 50 ML IV SCH ×5 (03:07→22:12)
--- NOTE | 2022-04-22 03:44 | NUR ---
PT REFUSING TO TAKE THE GOLYTE FOR BOWEL PREP, ONLY TOOK 1 CUP OUT OF THE 4LITER BOTTLE, STATING IT TASTE HORRIBLE, DR. GASTELUM NOTIFIED, OKAYED TO GIVE IT TO PT WITH APPLE JUICE.
--- NOTE | 2022-04-22 06:10 | NUR ---
PT RESTING COMFORTABLY IN BED, NO S/S OF DISTRESS OR DISCOMFORT NOTED, BREATHING EVEN AND UNLABORED, ALL FALL PROTOCOLS IN PLACE, WILL CONTINUE TO MONITOR AND ENDORSED TO INCOMING AM NURSE.
[2022-04-22 06:11] LABS: BASOPHILS % (AUTO) 0.2 % (0.0-2.0); EOSINOPHILS % (AUTO) 0.1 % (0.0-4.0); HEMOGLOBIN 7.4 g/dL (14.0-18.0); LYMPHOCYTES # (AUTO) 1.1 K/uL (1.0-5.5); LYMPHOCYTES % (AUTO) 6.3 % (20.5-51.5); MEAN CORPUSCULAR HEMOGLOBIN 22 pg (27-31); MEAN CORPUSCULAR HGB CONC 32 % (32-36); MEAN CORPUSCULAR VOLUME 69 fL (79.0-98.0); MONOCYTES # (AUTO) 1.5 K/uL (0.0-1.0); MONOCYTES % (AUTO) 8.8 % (1.7-9.3); NEUTROPHILS # (AUTO) 14.4 K/uL (1.8-7.7); NEUTROPHILS % (AUTO) 84.6 % (40.0-70.0); PLATELET COUNT (AUTO) 610 K/uL (130-430); RED BLOOD CELL COUNT(AUTO) 3.32 MIL/uL (4.2-6.2)
[2022-04-22] MEDS: KCL 20 mEq in NS 1000 mL 1,000 ML IV SCH ×3 (06:38→22:19)
--- NOTE | 2022-04-22 06:53 | NUR ---
Paged Dr. Kendrick for positive MRSA nares
[2022-04-22] MEDS ORDERED: SIMETHICONE 40 MG/0.6 ML ML ONE (06:54)
[2022-04-22] MEDS ORDERED: fentaNYL CITRATE/PF 100 MCG/2 ML AMP ONE (06:55)
[2022-04-22] MEDS ORDERED: MIDAZOLAM HCL 5 MG/5 ML VIAL ONE (06:55)
[2022-04-22 07:06] LABS: FOLATE (FOLIC ACID) 9.9 ng/mL (>3.0)
--- NOTE | 2022-04-22 07:17 | NUR ---
REPORT GIVEN TO MARCY GORE FOR CONTINUITY OF CARE ALL QUESTIONS WERE ANSWERED AND RN VERBALIZED UNDERSTANDING.
[2022-04-22 07:19] LABS: ALBUMIN 1.6 g/dL (3.4-4.8); CREATININE 1.09 mg/dL (0.55-1.30); POTASSIUM 4.1 mmol/L (3.5-5.1); TOTAL BILIRUBIN 0.3 mg/dL (0.0-1.0)
[2022-04-22 07:54] LABS: INR 1.1 (0.80-1.20)
[2022-04-22 08:00] VITALS: BP_SYST 139
[2022-04-22 08:10] LABS: RED CELL DISTRIBUTION WIDTH 25.7 % (9.0-15.0)
[2022-04-22] MEDS: MUPIROCIN 2% TOPICAL OINTMENT 22 GM NS SCH ×2 (10:00→22:11)
[2022-04-22] MEDS: METOPROLOL TARTRATE 50 MG TABLET PO SCH ×2 (10:25→22:12)
[2022-04-22] MEDS: cefTRIAXone 1 GM in D5W 50 ML IV SCH (10:25)
--- NOTE | 2022-04-22 11:25 | NUR ---
Dietitian Recommendations * When medically appropriate, advance diet to 2 gm Na. Please refer to Nutrition Assessment for details. Addendum: 04/22/22 at [address] Amended: Links added.
[2022-04-22] MEDS: metroNIDAZOLE 500 mg/NS 100 ML IV SCH ×2 (11:54→22:14)
[2022-04-22 12:00] VITALS: BP_SYST 128
[2022-04-22] MEDS ORDERED: SOD FERRIC GLUC COMPLEX/SUC 125 MG in NS 100 ML IV SCH (13:00)
[2022-04-22] MEDS: SOD FERRIC GLUC COMPLEX/SUC 125 MG in NS 100 ML IV SCH (15:23)
[2022-04-22 16:00] VITALS: BP_SYST 133
[2022-04-22] MEDS ORDERED: BISACODYL 5 MG TABLET.DR (DULCOLAX) PO ONE (17:00)
[2022-04-22] MEDS ORDERED: GOLYTELY / COLYTE SOLUTION 4 LITERS PO ONE (18:00)
--- NOTE | 2022-04-22 19:15 | NUR ---
OPENING NOTES Patient resting in bed - no s/s pain or distress noted. Respirations even and unlabored. Head of bed elevated. IV site patent - no s/s redness, infection, or infiltration. Bed locked and in lowest position. Call light within reach.
[2022-04-22 20:00] VITALS: BP_SYST 138
[2022-04-23] VITALS: BP_SYST 128
[2022-04-23] MEDS: PANTOPRAZOLE SODIUM 40 MG in NS 50 ML IV SCH ×3 (04:00→21:02)
--- NOTE | 2022-04-23 05:15 | NUR ---
TAPWATER ENEMA DONE AT THIS TIME DONE UNTIL CLEAR
[2022-04-23 07:34] VITALS: BP_SYST 118
[2022-04-23 08:06] LABS: AFP, TUMOR MARKER <0.9 ng/mL (0.0-6.9)
--- NOTE | 2022-04-23 08:15 | NUR ---
Received patient awake, alert, oriented and ambulatory. Vital signs stable.
[2022-04-23] MEDS: MUPIROCIN 2% TOPICAL OINTMENT 22 GM NS SCH ×2 (09:00→21:00)
[2022-04-23] MEDS: METOPROLOL TARTRATE 50 MG TABLET PO SCH ×2 (09:20→21:00)
[2022-04-23] MEDS ORDERED: MIDAZOLAM HCL 5 MG/5 ML VIAL ONE (09:42)
[2022-04-23] MEDS ORDERED: MEPERIDINE 100 MG INJ. 100 MG/ML VIAL ONE (09:42)
[2022-04-23 11:55] VITALS: BP_SYST 132
--- NOTE | 2022-04-23 11:57 | NUR ---
CONSULTATION PAGED/CALLED Reason for Consultation: []rectal mass Person Who was Notified: []Jacklyn Consulting Physician: [] Dr. Carey Item Processing Clerk Specialty: []Surgery Ordering Physician: []Dr. Kendrick
--- NOTE | 2022-04-23 12:02 | NUR ---
CONSULTATION PAGED/CALLED Reason for Consultation: []rectal mass Person Who was Notified: []Saw Consulting Physician: [] Dr. Mireles Telecommunications Facility Examiner Specialty: []Hematology Ordering Physician: []Dr. Kendrick
[2022-04-23] MEDS ORDERED: GADOTERATE MEGLUMINE 7.5 MMOL/15 ML VIAL IV ONE (12:26)
--- NOTE | 2022-04-23 12:45 | NUR ---
patient wheeled off unit for scheduled MRI
[2022-04-23] MEDS: SOD FERRIC GLUC COMPLEX/SUC 125 MG in NS 100 ML IV SCH (13:00)
--- NOTE | 2022-04-23 13:15 | NUR ---
Spoke with Dr Carey who called to get updates regarding consult.
[2022-04-23] MEDS: KCL 20 mEq in NS 1000 mL 1,000 ML IV SCH ×2 (17:30→21:01)
[2022-04-23] MEDS: cefTRIAXone 1 GM in D5W 50 ML IV SCH (17:31)
[2022-04-23] MEDS: metroNIDAZOLE 500 mg/NS 100 ML IV SCH ×2 (17:31→23:22)
[2022-04-23 20:00] VITALS: BP_SYST 134
--- NOTE | 2022-04-23 20:00 | NUR ---
RECEIVED PT FROM DAY SHIFT, PT AOX4,NO ACUTE DISTRESS OR DISCOMFORT NOTED, BREATHING EVEN AND UNLABORED, IV SITE IS INTACT AND PATENT SALINE LOCK, SATURATION ON ROOMAIR, FALL AND SAFETY PRECAUTIONS IN PLACE WITH BED IN LOWEST POSITION, BED ALARM ON, AND CALL LIGHT WITHIN REACH, WILL CONTINUE TO MONITOR.
[2022-04-24] VITALS: BP_SYST 128
--- NOTE | 2022-04-24 | NUR ---
NO CHANGES NOTED FROM PREVIOUS ASSESSMENT, WILL CONTINUE TO MONITOR.
[2022-04-24 00:35] LABS: BASOPHILS % (AUTO) 0.2 % (0.0-2.0); EOSINOPHILS % (AUTO) 0.2 % (0.0-4.0); HEMATOCRIT 22.6 % (36-54); HEMOGLOBIN 7.2 g/dL (14.0-18.0); LYMPHOCYTES # (AUTO) 1.1 K/uL (1.0-5.5); LYMPHOCYTES % (AUTO) 9.2 % (20.5-51.5); MEAN CORPUSCULAR HEMOGLOBIN 22 pg (27-31); MEAN CORPUSCULAR HGB CONC 32 % (32-36); MEAN CORPUSCULAR VOLUME 70 fL (79.0-98.0); MONOCYTES # (AUTO) 0.9 K/uL (0.0-1.0); NEUTROPHILS # (AUTO) 9.8 K/uL (1.8-7.7); NEUTROPHILS % (AUTO) 82.4 % (40.0-70.0); PLATELET COUNT (AUTO) 644 K/uL (130-430); RED BLOOD CELL COUNT(AUTO) 3.24 MIL/uL (4.2-6.2); RED CELL DISTRIBUTION WIDTH 26.1 % (9.0-15.0); WHITE BLOOD COUNT (AUTO) 11.9 K/uL (4.8-10.8)
[2022-04-24] MEDS: KCL 20 mEq in NS 1000 mL 1,000 ML IV SCH ×2 (06:30→16:30)
--- NOTE | 2022-04-24 07:23 | NUR ---
REPORT GIVEN TO CAITLIN RN FOR CONTINUITY OF CARE ALL QUESTIONS WERE ANSWERED AND RN VERBALIZED UNDERSTANDING.
--- NOTE | 2022-04-24 07:30 | NUR ---
MORNING ROUNDS: PATIENT SLEEPING DURING ROUNDS. CALL LIGHT WITH IN REACH. BED LOCKED AT LOWEST POSITION. NOT IN ANY DISTRESS.
[2022-04-24 08:30] VITALS: BP_SYST 139
[2022-04-24] MEDS: PANTOPRAZOLE SODIUM 40 MG in NS 50 ML IV SCH ×3 (09:20→15:15)
[2022-04-24] MEDS: METOPROLOL TARTRATE 50 MG TABLET PO SCH (09:30)
[2022-04-24] MEDS: MUPIROCIN 2% TOPICAL OINTMENT 22 GM NS SCH (09:38)
[2022-04-24] MEDS: cefTRIAXone 1 GM in D5W 50 ML IV SCH (09:38)
--- NOTE | 2022-04-24 09:50 | NUR ---
TRANSFER CARE: HAND IN REPORT GIVEN TO ARABELLA. PATIENT SITTING ON THE BED,HAVING HIS BREAKFAST. IV NOT CONNECTED PER PATIENT'S REQUEST.CALL LIGHT WITH IN REACH. BED LOCKED AT LOWEST POSITION.NO ACUTE DISTRESS.
[2022-04-24 12:30] VITALS: BP_SYST 131
[2022-04-24] MEDS: SOD FERRIC GLUC COMPLEX/SUC 125 MG in NS 100 ML IV SCH (13:23)
[2022-04-24] MEDS: metroNIDAZOLE 500 mg/NS 100 ML IV SCH (15:13)
[2022-04-24 16:30] VITALS: BP_SYST 127
--- NOTE | 2022-04-24 18:25 | NUR ---
PT SIGNED MO RUTH IN PT MADE AWARE TO STAY AND THE RISK OF LEAVING COULD LEAD TO PT CONTINUE TO STATE HE IS LEAVING NO MATTER WHAT PT ADVISED NOT TO LEAVE IV REMOVED ARMBANDS REMOVED PT AMBULATED OUT THE HOSPITAL PT MADE AWARE TO RETURN TO ED OR CALL 911
--- NOTE | 2022-04-25 08:34 | NUR ---
AMA: dispo code 07
[2022-04-29 10:39] LABS: CEA 68.1 ng/mL (0.0-4.7)
== END 2022-04-24 19:31 | disposition left against medical advice (07) | DRG 244 ==
LOC: SED 03:34 → STU 09:26 → SIC 15:23 → STU 04-21 20:47 → SIC 04-21 21:19 → STU 04-21 22:38
PROVIDERS: ADMIT Family Medicine; ATTEND Family Medicine
PROC: 30233N1 Transfusion of Nonautologous Red Blood Cells into Peripheral Vein, Percutaneous Approach (ICD-10-PCS; 2022-04-20)
PROC: 0DB78ZX Excision of Stomach, Pylorus, Via Natural or Artificial Opening Endoscopic, Diagnostic (ICD-10-PCS; principal; 2022-04-23 09:40)
PROC: 0DBE8ZX Excision of Large Intestine, Via Natural or Artificial Opening Endoscopic, Diagnostic (ICD-10-PCS; 2022-04-23 09:40)
DX: K57.31 Diverticulosis of large intestine without perforation or abscess with bleeding (principal); N17.0 Acute kidney failure with tubular necrosis; E43 Unspecified severe protein-calorie malnutrition; E86.0 Dehydration; K76.0 Fatty (change of) liver, not elsewhere classified; D49.0 Neoplasm of unspecified behavior of digestive system; D50.9 Iron deficiency anemia, unspecified; E66.9 Obesity, unspecified; K29.71 Gastritis, unspecified, with bleeding; I10 Essential (primary) hypertension; G89.29 Other chronic pain; K44.9 Diaphragmatic hernia without obstruction or gangrene; K80.20 Calculus of gallbladder without cholecystitis without obstruction; Z20.822 Contact with and (suspected) exposure to COVID-19; K59.09 Other constipation; K64.4 Residual hemorrhoidal skin tags; Z79.899 Other long term (current) drug therapy; Z68.35 Body mass index [BMI] 35.0-35.9, adult
CPT/HCPCS: 36415; 36430; 43239; 45380; 45381; 71045; 71275; 74183; 76376; 76700-TC; 78278-TC; 80048; 80053; 81003; 82105; 82378; 82550; 82607; 82728; 82746; 83540; 83550; 83605; 83735; 83880; 84484; 85025; 85044; 85379; 85610-TC; 85730-TC; 86886; 86900; 86901; 86920; 87040; 87081; 88305; 88312; 88313; 93005; 93306; 96361; 96365; 96375; 99291; A9541; A9575; C9113; G0378; J0696; J1885; J2175; J2250; J2543; J2916; J3010; J3480; J3490; J7030; J7060; P9021; Q9967